=== PATIENT | female | born 1970 | race Caucasian/White ===

== ENCOUNTER 2016-11-04 20:55 | Emergency (ER) | payer SELFPAY ==
[~2016-11-04] VITALS: Ht 165.1 cm; Wt 77.1 kg
[~2016-11-04 20:55] MED LIST: BENZONATATE100 MG PO; CARVEDILOL 1212.5 MG PO; CRESTOR20 MG PO; DICLOFENAC 50MG50 MG PO; KLONOPIN 0.5MG0.5 MG PO; LEVOTHYROXINE0.1 M1 PO; MELOXICAM15 MG PO; NEURONTIN 300M300 MG PO; NICOTINE PATCH;21 MG TD; NIFEDIPINE XL 330 MG PO; NORCO 325 MG-51 TAB PO; TRAZODONE100 MG PO; WARFARIN SOD5 M1 PO; XANAX 1MG TABLET1 MG PO; ZOFRAN ODT4 MG PO
[2016-11-04] MEDS ORDERED: PREDNISONE 20MG20 MG PO (21:56)
--- NOTE | 2016-11-04 22:01 | Emergency Room Report ---
History of Present Illness Time Seen by [id number] Presenting Problem in Triage Pt arrived:Walked Presenting Problem:C/O PAIN TO LEFT FOOT X 2 WEEKS, AREA SWOLLEN. 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 N Clinical Suspician of Infection? N Mental Status: 1 - Regular (Normal Baseline) Sepsis Risk:Low Sepsis Risk Have you (or family members/close friends) recently traveled outside the [place]? N If Yes, where/when: Have you had exposure to infectious disease within the past month? N TB? Other? Specify: Source patient, RN notes reviewed, family, old records Exam Limitations no limitations Comment lt foot pain over the last few weeks inc with wt bearing and has been seen at clinic - no hx of trauma or gout and no other jts involved Cardiac Chest Pain Chest pain indicative of cardiac No Timing/Duration this evening Severity moderate ALLERGIES Coded Allergies: Penicillins (04/10/16) ibuprofen (NAUSEA 04/10/16) Home Medications Reported Medications No Known Home Medications History Medical History General CAD? No Angina: Yes [place]: No Hypertension? Yes Hyperlipidemia? Yes CHF? No DVT? No PE? No COPD? No Asthma? No Anemia? No GERD? No Gastric ulcers? No GI Bleed? No Hernia? No Thyroid Problems? Yes Hypothyroidism? Yes CVA? No Seizures? No Diabetes? No Renal Insuffiency? No End Stage Renal Disease? No UTI? No Stones? No BPH? No GB Disease: No Nephritic Syndrome? No Asplenia? No Hepatitis? No Sickle Cell Disease? No Arthritis? No Migraines? No Cataracts? No Glaucoma? No MRSA? No HIV? No TB? No Anxiety? Yes Depression? Yes Cancer? 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 Respiratory denies cough Cardiovascular denies chest pain, denies palpitations, denies syncope Gastrointestinal denies abdominal pain, denies diarrhea, denies vomiting Genitourinary denies: dysuria, frequency, hesitancy, hematuria. Musculoskeletal see HPI, denies back pain, joint pain, denies joint swelling, denies neck pain Skin denies rash Psychiatric/Neurological denies headache, denies seizure Physical Exam Vital Signs Vital Signs Date Time Temp Pulse Resp B/P Pulse O2 O2 Flow FiO2 Ox Delivery Rate 11/04 2137 92 18 158/86 99 11/04 2101 97.8 94 18 165/105 99 - WBC >12,000 or <4,000 or 10% bands? 2 or more SIRS Criteria Met? B/P:158/86 MAP:125 Creatinine >2.0? UA output<0.5ml/kg/hr for 2 hrs? Platelet count >100,000? Lactate >2.0mmol/1? INR >1.2 or PTT > than 60 sec? Evidence of Organ Dysfunction? Provider documented clinical suspician of infection? N Sepsis Criteria Count: 1 Sepsis Risk: Low Sepsis Risk General Appearance no apparent distress Eye Exam - bilateral eye PERRL, bilateral eye EOMI Ear, Nose, Throat normal ENT inspection Neck supple Respiratory Status No: respiratory distress. 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 No Results/Orders Orders Procedure Date/time Status FOOT-LT-3 VIEWS 11/04 2106 Active XRAY/CT/US XRAY/CT/US XRAY foot XR interpretation by reviewed by me Xray Results no fracture seen Departure Departure Time of Disposition 2150 Disposition DC Home or Self Care(routine) Clinical Impression Primary Impression: Plantar fasciitis of left foot Condition STABLE Referrals Torsten RIVAS,Bryan Dale (Family) Patient Instructions DI for Plantar Fasciitis Additional Instructions use meds and call pcp for follow up Discharge Counseling Counseled pt/family regarding diagnosis, test results, medications/RX, follow up needs Prescriptions Current Visit Scripts Prednisone (Prednisone 20MG) 20 MG PO BID #12 TAB ED Critical Care Critical Care No at 2200
--- NOTE | 2016-11-04 22:01 | Emergency Room Report ---
History of Present Illness Time Seen by [id number] Presenting Problem in Triage Pt arrived:Walked Presenting Problem:C/O PAIN TO LEFT FOOT X 2 WEEKS, AREA SWOLLEN. 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 N Clinical Suspician of Infection? N Mental Status: 1 - Regular (Normal Baseline) Sepsis Risk:Low Sepsis Risk Have you (or family members/close friends) recently traveled outside the [place]? N If Yes, where/when: Have you had exposure to infectious disease within the past month? N TB? Other? Specify: Source patient, RN notes reviewed, family, old records Exam Limitations no limitations Comment lt foot pain over the last few weeks inc with wt bearing and has been seen at clinic - no hx of trauma or gout and no other jts involved Cardiac Chest Pain Chest pain indicative of cardiac No Timing/Duration this evening Severity moderate ALLERGIES Coded Allergies: Penicillins (04/10/16) ibuprofen (NAUSEA 04/10/16) Home Medications Reported Medications No Known Home Medications History Medical History General CAD? No Angina: Yes [place]: No Hypertension? Yes Hyperlipidemia? Yes CHF? No DVT? No PE? No COPD? No Asthma? No Anemia? No GERD? No Gastric ulcers? No GI Bleed? No Hernia? No Thyroid Problems? Yes Hypothyroidism? Yes CVA? No Seizures? No Diabetes? No Renal Insuffiency? No End Stage Renal Disease? No UTI? No Stones? No BPH? No GB Disease: No Nephritic Syndrome? No Asplenia? No Hepatitis? No Sickle Cell Disease? No Arthritis? No Migraines? No Cataracts? No Glaucoma? No MRSA? No HIV? No TB? No Anxiety? Yes Depression? Yes Cancer? 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 Respiratory denies cough Cardiovascular denies chest pain, denies palpitations, denies syncope Gastrointestinal denies abdominal pain, denies diarrhea, denies vomiting Genitourinary denies: dysuria, frequency, hesitancy, hematuria. Musculoskeletal see HPI, denies back pain, joint pain, denies joint swelling, denies neck pain Skin denies rash Psychiatric/Neurological denies headache, denies seizure Physical Exam Vital Signs Vital Signs Date Time Temp Pulse Resp B/P Pulse O2 O2 Flow FiO2 Ox Delivery Rate 11/04 2137 92 18 158/86 99 11/04 2101 97.8 94 18 165/105 99 - WBC >12,000 or <4,000 or 10% bands? 2 or more SIRS Criteria Met? B/P:158/86 MAP:125 Creatinine >2.0? UA output<0.5ml/kg/hr for 2 hrs? Platelet count >100,000? Lactate >2.0mmol/1? INR >1.2 or PTT > than 60 sec? Evidence of Organ Dysfunction? Provider documented clinical suspician of infection? N Sepsis Criteria Count: 1 Sepsis Risk: Low Sepsis Risk General Appearance no apparent distress Eye Exam - bilateral eye PERRL, bilateral eye EOMI Ear, Nose, Throat normal ENT inspection Neck supple Respiratory Status No: respiratory distress. 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 No Results/Orders Orders Procedure Date/time Status FOOT-LT-3 VIEWS 11/04 2106 Active XRAY/CT/US XRAY/CT/US XRAY foot XR interpretation by reviewed by me Xray Results no fracture seen Departure Departure Time of Disposition 2150 Disposition DC Home or Self Care(routine) Clinical Impression Primary Impression: Plantar fasciitis of left foot Condition STABLE Referrals Torsten RIVAS,Bryan Dale (Family) Patient Instructions DI for Plantar Fasciitis Additional Instructions use meds and call pcp for follow up Discharge Counseling Counseled pt/family regarding diagnosis, test results, medications/RX, follow up needs Prescriptions Current Visit Scripts Prednisone (Prednisone 20MG) 20 MG PO BID #12 TAB ED Critical Care Critical Care No at 2200
[2016-11-04 22:06] VITALS: BP 158/86
--- NOTE | 2016-11-05 08:16 | RADIOLOGY REPORT PS360 ---
FOOT-LT-3 VIEWS HISTORY: C/O PAIN, AREA SWOLLEN ORDERING PHYSICIAN: Otilio Sarmiento MD PATIENT AGE: 46 years COMPARISON: None FINDINGS: No fracture or dislocation. No lytic or blastic change. There is normal mineralization.. The joint spaces are well-preserved. No significant degenerative/arthritic changes. No erosive changes evident. There is very minimal spurring at the calcaneal insertion without erosive change IMPRESSION: Essentially negative left foot, no acute finding
== END 2016-11-04 22:08 | disposition home or self-care (01) ==
LOC: ER 20:55
DX: M72.2 Plantar fascial fibromatosis (principal); I10 Essential (primary) hypertension; Z72.0 Tobacco use

== ENCOUNTER → 2017-03-26 | Outpatient (CLI) | payer MEDICAID ==
[~2017-03-26] MED LIST changes: +GABAPENTIN800 MG; +KLONOPIN0.5 M1; +LEVOTHYROXIN0.125 MG; +LIPITOR10 MG; +LISINOPRIL 10MG10 MG; +PREDNISONE 20MG20 MG PO
[2017-03-26 18:34] LABS: AMPHETAMINES/METAMPHETAMINES NEGATIVE ng/mL (<1000)
== END ==
LOC: LAB 16:23
PROVIDERS: Emergency Medicine
DX: Z79.899 Other long term (current) drug therapy (principal)

== ENCOUNTER → 2017-05-20 | Outpatient (CLI) | payer MEDICAID ==
[~2017-05-20] MED LIST changes: +MEDROL 4MG. DOSE4 MG PO; +NAPROSYN500 M1 PO; +TYLENOL WITH CO1 TA1
[2017-05-20 16:19] LABS: AMPHETAMINES/METAMPHETAMINES NEGATIVE ng/mL (<1000)
[2017-05-27 08:45] LABS: Alprazolam Negative (Cutoff=100); Benzodiazepines Positive ng/mL (Cutoff=100); Clonazepam Positive (.); Clonazepam Confirm 198 ng/mL (Cutoff=100); Flurazepam Negative (Cutoff=100); Lorazepam Negative (Cutoff=100); Midazolam Negative (Cutoff=100); Temazepam Negative (Cutoff=100); Triazolam Negative (Cutoff=100)
== END ==
LOC: LAB 15:23
PROVIDERS: Emergency Medicine
DX: Z79.899 Other long term (current) drug therapy (principal)
CPT/HCPCS: G0480